=== PATIENT | male | born 1955 | race Caucasian/White ===

== ENCOUNTER 2022-03-15 08:45 | Outpatient (CLI) | payer BC, SELFPAY ==
[2022-03-15 14:18] LABS: Albumin* 4.1 g/dL (3.3-5.0)
[2022-03-15 14:19] LABS: Chloride* 99 mmol/L (96-114); Potassium* 4.6 mmol/L (3.6-5.1); Sodium* 135 mmol/L (135-149)
[2022-03-15 14:21] LABS: Alanine Aminotransferase* 22 U/L (4-50); Alkaline Phosphatase* 84 U/L (40-150); Aspartate Amino Transferase* 28 U/L (12-35); Bilirubin Total* 0.6 mg/dL (0.1-1.5); Blood Urea Nitrogen* 14 mg/dL (7-30); Carbon Dioxide* 29 mmol/L (20-32); Cholesterol* 171 mg/dL (90-199); Creatinine* 0.8 mg/dL (0.5-1.5); Estimated Glomerular Filt Rate 98 ml/min; Glucose* 92 mg/dL (60-115); Total Protein* 6.5 g/dL (6.0-8.3)
[2022-03-15 14:22] LABS: Calcium* 9.3 mg/dL (8.4-10.6); HDL Cholesterol* 82 mg/dL (>=40); LDL Cholesterol Calculated 80 mg/dL (<100); Triglycerides* 45 mg/dL (40-149)
[2022-03-15 15:20] LABS: Hepatitis C Virus Antibody* Negative (Negative)
== END 2022-03-15 08:46 | disposition home or self-care (01) ==
PROVIDERS: PCP Family Medicine; Visit Provider Family Medicine
DX: Z00.00 Encounter for general adult medical examination without abnormal findings (principal); I10 Essential (primary) hypertension; Z13.6 Encounter for screening for cardiovascular disorders
CPT/HCPCS: 80053; 80061; 86803

== ENCOUNTER 2022-03-17 10:50 | Outpatient (CLI) | payer MEDICARE, SELFPAY ==
--- NOTE | 2022-03-17 11:00 | CRLHL7_ITS ---
For Patients: As a result of the Century Cures Act, medical imaging exams and procedure reports are released immediately into your electronic medical record. You may view this report before your referring provider. If you have questions, please contact your health care provider. Examination: US abdominal aorta Indication: Abdominal aortic aneurysm screening. Technique: Lopes scale and color Doppler images of the aorta and common iliac arteries are obtained. Comparison: None Findings: Proximal aorta: 2.5 x 2.5 cm Mid aorta: 2.2 x 2 x 2 cm Distal aorta: 2.0 x 1.9 cm Right common iliac artery: 1.3 x 1.3 cm Left common iliac artery: 1.3 x 1.3 cm Mild atherosclerotic changes are present. Multiple simple intrahepatic cysts incidentally noted. Impression: No abdominal aortic aneurysm. Dictated by Brendon Thomason MD @ 03/17/2022 11:42:29 AM (Electronically Signed)
== END 2022-03-17 10:51 | disposition home or self-care (01) ==
PROVIDERS: PCP Family Medicine; Visit Provider Family Medicine
DX: Z13.6 Encounter for screening for cardiovascular disorders (principal); Z87.891 Personal history of nicotine dependence
CPT/HCPCS: 76706

== ENCOUNTER 2023-04-26 08:38 | Outpatient (CLI) | payer MEDICARE, SELFPAY ==
[2023-04-26 14:24] LABS: Total Protein Urine 13 mg/dL
[2023-04-26 14:31] LABS: Microalbumin Creatinine Ratio 40 mg/g (0-30); Microalbumin Urine < 1 mg/dL
== END 2023-04-26 08:39 | disposition home or self-care (01) ==
PROVIDERS: PCP Family Medicine; Visit Provider Family Medicine
DX: I10 Essential (primary) hypertension (principal)
CPT/HCPCS: 80053; 80061; 82043; 82570; 84156

== ENCOUNTER 2024-01-25 07:30 | Outpatient (RCR) | payer MEDICARE, SELFPAY ==
--- NOTE | 2024-01-02 09:55 | PT.OPE ---
[facility] Eval PT [facility] Out[facility] Eval Start: 01/02/24 08:21 Freq: Status: Active Protocol: Document 01/02/24 09:34 CHERYL (Rec: 01/02/24 09:52 CHERYL [id number]) E-signed By Dung Hackett, PT, ATC Physical Therapy Outpatient Evaluation Insurance Information Insurance Name Medicare B Insurance Information/Comments Blue Medicare Medical Diagnosis M19.90 Unspecified osteoarthritis, unspecified site Treating Diagnosis R sided Low back pain R heel pain Referring MD Beebe Subjective Preferred Name Everardo Subjective Patient reports intermittent episodes of R sided low back pain that makes him catch his breath each day. Symptom onset x 3 weeks ago without any apparent cause. Was seen in PT about two years ago for similar lbp. He is taking the prescribed Celebrex and has discontinued the Aleve usage. 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 Minimal physical exertion. Symptoms have not kept him from performing daily tasks but does have to stop his activity during an episode. No symptoms extension into the buttocks or lower leg. In addition, he reports having Plantar Fasciitis in the R foot which creates heel pain in the mornings with his first few steps and also as the day progresses. This does cause him to limp and likley change his posture in his lower back. The heel pain came before the back symptoms.` Pain Comments Pain range 0-5/10 Date of Last Physician Visit 12/19/23 Current Work Status Senior [employer] Precautions Treatment Precautions/Contraindications None Therapy Limitations/Systems Review Not Limited Objective Range of Motion Back/trunk: WNL's all directions with exception of EXT, -30%. Ankle: WNL's, DF to 5 degrees actively and 8 passively bilaterally. Tight hip flexors R > L Strength 5/5 trunk 5/5 ankle Palpation Very tender in R lumbar paraspinals L3-5. Reduced mobility to pressure over R SI joint and lower lumbar vertebrae. R plantar fascia origin painful Posture Stands with increased lumbar lordosis Bilateral pes cavus-high arches. Maintained in WB'ing. Assessment Assessment/Impression Everardo is a very pleasant 68 year old male experiencing both lower back pain and heel pain, both on the R side. 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 Contributing factors include tight hip flexors, weak abdominal and hip ABD muscles and vertebral hypomobility. He would benefit from both manual therapy and a therapeutic exercise program for the trunk/core/lower spine . Plantar fasciitis in the R heel could be better supported with newer running shoes ( stable with high arches), posterior calf stretching and ice massage. Primary Functional Limitations Completing work day Mowing lawn Lifting items from floor Walking, giuseppe mornings Plan of Care Rehabilitation Potential Good Physical Therapy Goals 1.Independent and correct performance with a home ex program including strength, stabilization and stretching. 2.Able to walk in the mornings and later in the the day with a 50% reduction in R heel pain. 3.Educate patient in proper shoe selection and replacement . 4.Decrease lbp x 75% with ADL' s and work performance. 5.To mow lawn without need for a break due to lbp. Coordination/Communication With Referral Source Treatment Plan/Direct Interventions Joint Mobilization,Manual Therapy,Orthotics/Braces,Self- Care/Home Management, Therapeutic Activities, Therapeutic Exercises,Traction (Mechanical) Frequency/Duration 1-2x per week 4-12 weeks Patient Will Be Discharged From Therapy Independent w/HEP, Independently Progressing Evaluation Billing Untimed Code Treatment Minutes 30 PT Eval No Charge No Complexity Low Certification Information Initial Certification Date 01/02/24 Ending Certification Date 04/03/24 Provider Signature Required Yes Provider Signature Shows Agreement With POC & Medical Necessity Physician NPI Number Write NPI# Here Physician Comment/Change : Physician Signature & Date Requested Please Sign/Date Here
== END 2024-01-25 08:14 | disposition home or self-care (01) ==
PROVIDERS: PCP Family Medicine; Visit Provider Family Medicine
DX: M19.90 Unspecified osteoarthritis, unspecified site (principal); M54.50 Low back pain, unspecified; M79.671 Pain in right foot; Z51.89 Encounter for other specified aftercare
CPT/HCPCS: 97110; 97140; 97161

== ENCOUNTER 2024-05-03 07:17 | Outpatient (CLI) | payer MEDICARE, SELFPAY | END 2024-05-03 07:18 | disposition home or self-care (01) | PROVIDERS: PCP Family Medicine; Visit Provider Family Medicine | DX: I10 Essential (primary) hypertension (principal); N52.9 Male erectile dysfunction, unspecified; Z13.220 Encounter for screening for lipoid disorders | CPT/HCPCS: 80053; 80061; 82043; 82570 ==

== ENCOUNTER 2024-05-07 06:25 | Outpatient (CLI) | payer MEDICARE, SELFPAY ==
--- NOTE | 2024-05-07 07:59 | W.ANESCHARGE ---
Anesthesia Charges Start Date/Time Anesthesia Start Date: 05/07/24 Anesthesia Start Time: 07:24 Stop Date/Time Anesthesia Stop Date: 05/07/24 Anesthesia Stop Time: 07:54
--- NOTE | 2024-05-07 08:27 | W.ANESCHARGE ---
Anesthesia Charges Start Date/Time Anesthesia Start Date: 05/07/24 Anesthesia Start Time: 07:24 Stop Date/Time Anesthesia Stop Date: 05/07/24 Anesthesia Stop Time: 07:54
== END 2024-05-07 06:26 | disposition home or self-care (01) ==
PROVIDERS: PCP Family Medicine; Visit Provider Surgery
DX: Z12.11 Encounter for screening for malignant neoplasm of colon (principal); K57.30 Diverticulosis of large intestine without perforation or abscess without bleeding; Z86.0100 Personal history of colon polyps, unspecified
CPT/HCPCS: 00812; 45378; J2704

== ENCOUNTER 2024-07-05 08:58 | Outpatient (CLI) | payer MEDICARE, SELFPAY ==
--- NOTE | 2024-07-05 09:15 | CRLHL7_ITS ---
For Patients: As a result of the Century Cures Act, medical imaging exams and procedure reports are released immediately into your electronic medical record. You may view this report before your referring provider. If you have questions, please contact your health care provider. INDICATION: Ischemic heart disease. History of craniectomy. COMPARISON: None. TECHNIQUE: Lipf-bn-edpfcc MRA. 3D reconstructed images. Axial diffusion-weighted sequence. FINDINGS: No restricted diffusion to suggest acute ischemia. Bilateral carotid siphons are patent. Patent [place] of [place] with patent right and diminutive left posterior kinking arteries. Visualized bilateral EDVIN and MCA circulations are patent with no focal high-grade stenosis or aneurysm. Tiny 2 mm focal outpouching arising from the posterior margin of the communicating segment of left intracranial ICA (series 4, image 100) likely represents a prominent infundibulum or less likely tiny aneurysm. Bilateral [employer] circulations are patent with no stenosis or aneurysm. Patent left dominant vertebrobasilar system. IMPRESSION: 1. Tiny 2 millimeter focal outpouching arising from the posterior margin of the communicating segment of the left intracranial ICA may represent a prominent infundibulum or less likely tiny aneurysm. Consider interval follow-up in 1 year to confirm stability. 2. Remainder of the MRA head is normal Dictated by Otto Hernandez MD @ 07/05/2024 11:57:08 AM (Electronically Signed)
== END 2024-07-05 08:59 | disposition home or self-care (01) ==
LOC: MRI 08:58
PROVIDERS: PCP Family Medicine; Visit Provider Family Medicine
DX: G93.9 Disorder of brain, unspecified (principal); Z82.49 Family history of ischemic heart disease and other diseases of the circulatory system; Z98.890 Other specified postprocedural states
CPT/HCPCS: 70544

== ENCOUNTER 2024-07-12 14:38 | Outpatient (CLI) | payer MEDICARE, SELFPAY | END 2024-07-12 14:39 | disposition home or self-care (01) | PROVIDERS: PCP Family Medicine; Visit Provider Family Medicine | DX: I10 Essential (primary) hypertension (principal); N52.9 Male erectile dysfunction, unspecified; Z12.5 Encounter for screening for malignant neoplasm of prostate | CPT/HCPCS: 80053; G0103 ==

== ENCOUNTER 2025-05-06 08:09 | Outpatient (CLI) | payer MEDICARE, SELFPAY | END 2025-05-06 08:10 | disposition home or self-care (01) | PROVIDERS: PCP Family Medicine; Visit Provider Family Medicine | DX: Z00.00 Encounter for general adult medical examination without abnormal findings (principal); I10 Essential (primary) hypertension; Z12.5 Encounter for screening for malignant neoplasm of prostate | CPT/HCPCS: 80053; 80061; 82043; 82570; G0103 ==

== ENCOUNTER 2025-06-10 16:30 | Outpatient (RCR) | payer MEDICARE, SELFPAY ==
--- NOTE | 2025-05-21 12:59 | PT.OPE ---
[facility] Eval PT [facility] Outpatient Eval Start: 05/21/25 12:46 Freq: Status: Active Protocol: Document 05/21/25 12:46 CHERYL (Rec: 05/21/25 12:57 CHERYL [id number]) E-signed By Dung Hackett, PT, ATC Physical Therapy Outpatient Evaluation Insurance Information Insurance Name Medicare B,Blue Cross/Blue Shield Medical Diagnosis M25.511 pain in right shoulder Treating Diagnosis R shoulder pain, OA Referring MD Malgorzata Beebe Subjective Preferred Name Everardo Subjective Everardo reports mostly activity induced R shoulder pain occurring with most lifting, reaching across chest and/ or behind his back. 8 year history of R shoulder symptoms yet intensity seems to have become more severe over past 6 months. Sleeping can also create pain, especially when laying upon it. Is taking Celebrex and applying a topical Voltaren cream. No weakness reported . Works out regularly using weights for UE's and core ex.s for trunk/back. Hoping to learn more about what's creating discomfort and get some exercises to lessen intensity. Pain Comments -01/03 Date of Last 05/06/25 Physician Visit Occupation Owns and works at [employer] Precautions Therapy Limitations/ Not Limited Systems Review Objective Range of Motion R shoulder Active range: R/L Flex 165/170 ER 55/70 IR 55/60 Strength All R shoulder patterns 5/5, Flex, Abd and Horz Adduc pain producing Swelling none apparent Palpation mild tenderness in subacromial space Other/Pertinent Positive Jefferson-Vinny and Open Can tests Objective Restricted capsular glides in R GH joint Assessment Assessment/ Everardo's symptoms appear to be a combination of RC Impression tendonitis and GH osteoarthritis with capsular hypomobility. A skilled PT program offering joint mobiilzation, PROM, AAROM, scapular stabilization and light RC strengthening is advised. Plan of Care Rehabilitation Good Potential Physical Therapy 1.Independent and correct performance with his HEP. Goals 2.Lessen both incidence and intensity of R shoulder pain x 50%. 3.Able to wash opposite shoulder and reach into cupboards over shoulder height without compensation. Coordination/ Referral Source Communication With Treatment Plan/ Ice/Cold/Vasopneumatic,Joint Mobilization,Manual Direct Interventions Therapy,Self-Care/Home Management Frequency/Duration 6-12 visits Patient Will Be Independent w/HEP,Independently Progressing Discharged From Therapy Evaluation Billing Untimed Code 30 Treatment Minutes PT Eval No Charge No Complexity Low Certification Information Initial 05/21/25 Certification Date Ending Certification 08/21/25 Date Provider Signature Yes Required Provider Signature POC & Medical Necessity Shows Agreement With Physician NPI Number Write NPI# Here Physician Comment/ : Change Physician Signature Please Sign/Date Here & Date Requested
== END 2025-06-11 10:05 | disposition home or self-care (01) ==
PROVIDERS: PCP Family Medicine; Visit Provider Family Medicine
DX: M25.511 Pain in right shoulder (principal); Z51.89 Encounter for other specified aftercare
CPT/HCPCS: 97110; 97140; 97161